=== PATIENT | female | born 1985 | race African-American/Black ===

== ENCOUNTER 2016-12-25 02:05 | Emergency (ER) | payer MEDICAID ==
[2016-12-25 02:25] LABS: APPEARANCE CLEAR (CLEAR); COLOR YELLOW (YELLOW)
[2016-12-25 02:26] LABS: BILIRUBIN NEGATIVE (NEGATIVE); GLUCOSE NEGATIVE (NEGATIVE); KETONE NEGATIVE (NEGATIVE); NITRITE NEGATIVE (NEGATIVE); PROTEIN NEGATIVE (NEGATIVE); SPECIFIC GRAVITY 1.015 (1.005-1.020); UROBILINOGEN NORMAL (NORMAL)
[2016-12-25 02:30] LABS: HCG URINE NEGATIVE (NEGATIVE)
[2016-12-25 02:37] LABS: BASOPHILS 0.3 % (0-2); EOSINOPHILS 1.6 % (0-7); HEMATOCRIT 38.9 % (36.0-48.0); HEMOGLOBIN 13.3 g/dL (12-16); IMMATURE GRANULOCYTES 0.1 % (0-5); LYMPHOCYTES 32.8 % (15-50); MCH 31.1 pg (26.0-34.0); MCHC 34.2 g/dL (31.0-37.0); MCV 91.1 fL (80.0-100.0); MONOCYTES 13.6 % (2-11); NEUTROPHILS 51.6 % (40-80); PLATELET COUNT 309 10x3/uL (130-400); RBC 4.27 10x6/uL (4.00-5.40); RDW 12.3 % (11.5-14.5); WBC 7.1 10x3/uL (4.8-10.8)
[2016-12-25 02:50] LABS: AMYLASE - SERUM 77 U/L (25-115); LIPASE 97 U/L (73-393)
[2016-12-25 03:11] LABS: ALBUMIN 3.9 g/dL (3.4-5.0); ALKALINE PHOSPHATASE 56 U/L (46-116); ALT (SGPT) 17 U/L (10-68); BILIRUBIN - TOTAL 0.56 mg/dL (0.2-1.3); CALC OSMOLALITY 274 mosm/kg (275-300); CALCIUM 10.4 mg/dL (8.5-10.1); CARBON DIOXIDE 27.5 mmol/L (21.0-32.0); CHLORIDE - SERUM 101 mmol/L (98-107); CREATININE - SERUM 0.9 mg/dL (0.6-1.3); GLUCOSE 102 mg/dL (74-106); POTASSIUM - SERUM 4.3 mmol/L (3.5-5.1); PROTEIN - SERUM 8.4 g/dL (6.4-8.2); SODIUM 138 mmol/L (136-145); UREA NITROGEN 10 mg/dL (7-18); eGFR NON AFRICAN AMERICAN 78 mL/min (90-120)
== END 2016-12-25 04:04 | disposition home or self-care (01) ==
LOC: D.ER 02:05
PROVIDERS: Emergency Medicine
DX: K27.9 Peptic ulcer, site unspecified, unspecified as acute or chronic, without hemorrhage or perforation (principal)

== ENCOUNTER 2017-02-25 19:58 | Emergency (ER) | payer MEDICAID ==
[2017-02-25 20:44] LABS: APPEARANCE SLT CLOUDY (CLEAR); BILIRUBIN NEGATIVE (NEGATIVE); COLOR YELLOW (YELLOW); GLUCOSE NEGATIVE (NEGATIVE); KETONE SMALL mg/dL (NEGATIVE); NITRITE NEGATIVE (NEGATIVE); PROTEIN NEGATIVE (NEGATIVE); UROBILINOGEN NORMAL (NORMAL)
[2017-02-25 20:45] LABS: BASOPHILS 0 % (0-2); EOSINOPHILS 1.1 % (0-7); HEMATOCRIT 40.5 % (36.0-48.0); HEMOGLOBIN 13.7 g/dL (12-16); IMMATURE GRANULOCYTES 0.2 % (0-5); LYMPHOCYTES 22.2 % (15-50); MCH 31.1 pg (26.0-34.0); MCHC 33.8 g/dL (31.0-37.0); MEAN PLATELET VOLUME 9.7 fL (7.4-10.4); MONOCYTES 9.1 % (2-11); NEUTROPHILS 67.4 % (40-80); PLATELET COUNT 330 10x3/uL (130-400); RDW 12.6 % (11.5-14.5); WBC 5.4 10x3/uL (4.8-10.8)
[2017-02-25 20:47] LABS: BACTERIA FEW /hpf (NONE SEEN); RED CELLS - URINE 0-5 /hpf (0-5); WHITE CELLS - URINE 0-5 /hpf (0-5)
[2017-02-25 20:50] LABS: HCG URINE NEGATIVE (NEGATIVE)
[2017-02-25 20:57] LABS: ALBUMIN 4.1 g/dL (3.4-5.0); ALKALINE PHOSPHATASE 63 U/L (46-116); ALT (SGPT) 23 U/L (10-68); AMYLASE - SERUM 81 U/L (25-115); BILIRUBIN - TOTAL 0.72 mg/dL (0.2-1.3); CALC OSMOLALITY 273 mosm/kg (275-300); CALCIUM 9.8 mg/dL (8.5-10.1); CHLORIDE - SERUM 99 mmol/L (98-107); CREATININE - SERUM 0.8 mg/dL (0.6-1.3); GLUCOSE 99 mg/dL (74-106); PROTEIN - SERUM 8.4 g/dL (6.4-8.2); SODIUM 137 mmol/L (136-145); UREA NITROGEN 12 mg/dL (7-18); eGFR NON AFRICAN AMERICAN 90 mL/min (90-120)
== END 2017-02-25 23:09 | disposition home or self-care (01) ==
LOC: D.ER 19:58
PROVIDERS: Family Medicine
DX: B34.9 Viral infection, unspecified (principal)

== ENCOUNTER → 2018-06-02 17:02 | Outpatient (CLI) | payer MEDICAID ==
[2018-06-02 18:01] LABS: T4 THYROXIN - FREE 1.03 ng/dL (0.76-1.46); THYROID STIMULATING HORMONE 0.55 uIU/mL (0.36-3.74)
== END | disposition home or self-care (01) ==
LOC: D.LABREF 17:02
PROVIDERS: ATTEND Internal Medicine Cardiovascular Disease
DX: I47.1 Supraventricular tachycardia (principal)

== ENCOUNTER → 2018-06-09 14:25 | Outpatient (CLI) | payer MEDICAID ==
[~2018-06-09 14:25] MED LIST: AUGMENTIN 875-11 TAB PO; DILANTIN100 MG PO; LANOXIN125 MCG PO; NAPROSYN500 MG PO; OMEPRAZOLE20 M1 PO; PAMELOR 25 MG C25 MG PO
== END | disposition home or self-care (01) ==
LOC: D.HCCARDIO 14:25
DX: I47.1 Supraventricular tachycardia (principal)

== ENCOUNTER 2018-07-31 00:17 | Observation (INO) | payer MEDICAID ==
[~2018-07-31] VITALS: Ht 167.6 cm; Wt 117.7 kg
[2018-07-31] MEDS ORDERED: DILANTIN100 MG PO (00:21)
[2018-07-31] MEDS ORDERED: OMEPRAZOLE20 M1 PO (00:21)
[2018-07-31] MEDS ORDERED: PAMELOR 25 MG C25 MG PO (00:22)
--- NOTE | 2018-07-31 00:35 | NUR ---
PT MOVED FROM ROOM ED 10 TO TRAUMA ROOM 3 FOR HR 220 AND LOW B/P
[2018-07-31 00:42] VITALS: BP 117/78
--- NOTE | 2018-07-31 00:45 | NUR ---
PT ADVISED THAT SHE WAS FEELING BETTER AND HER CHEST PAIN HAVE IMPROVED.
[2018-07-31 00:47] LABS: BASOPHILS 0.3 % (0-2); EOSINOPHILS 1.4 % (0-7); HEMATOCRIT 36.1 % (36.0-48.0); HEMOGLOBIN 12.1 g/dL (12-16); IMMATURE GRANULOCYTES 0.2 % (0-5); LYMPHOCYTES 32.4 % (15-50); MCH 29.5 pg (26.0-34.0); MCHC 33.5 g/dL (31.0-37.0); MEAN PLATELET VOLUME 9.8 fL (7.4-10.4); MONOCYTES 6.9 % (2-11); NEUTROPHILS 58.8 % (40-80); PLATELET COUNT 352 10x3/uL (130-400); WBC 6.4 10x3/uL (4.8-10.8)
[2018-07-31 00:49] LABS: INR 1.06 (0.85-1.17); PROTIME 13.3 SECONDS (11.6-15.0)
[2018-07-31 00:55] VITALS: BP 122/85
[2018-07-31 00:57] LABS: ALBUMIN 3.5 g/dL (3.4-5.0); ALKALINE PHOSPHATASE 67 U/L (46-116); ALT (SGPT) 22 U/L (10-68); CALC OSMOLALITY 277 mosm/kg (275-300); CALCIUM 8.4 mg/dL (8.5-10.1); CHLORIDE - SERUM 103 mmol/L (98-107); CREATININE - SERUM 1.1 mg/dL (0.6-1.3); GLUCOSE 105 mg/dL (74-106); POTASSIUM - SERUM 3.5 mmol/L (3.5-5.1); PROTEIN - SERUM 7.9 g/dL (6.4-8.2); SODIUM 139 mmol/L (136-145); UREA NITROGEN 12 mg/dL (7-18); eGFR NON AFRICAN AMERICAN 62 mL/min (90-120)
[2018-07-31 01:02] VITALS: BP 122/84
[2018-07-31 01:16] LABS: APTT < 20.0 SECONDS (22.8-39.4)
[2018-07-31 01:16] LABS: HCG URINE NEGATIVE (NEGATIVE); UDS - AMPHET NEGATIVE QUAL (NEGATIVE); UDS - BARB NEGATIVE QUAL (NEGATIVE); UDS - BENZO NEGATIVE QUAL (NEGATIVE); UDS - COCAINE NEGATIVE QUAL (NEGATIVE); UDS - OPIATE NEGATIVE QUAL (NEGATIVE); UDS - PCP NEGATIVE QUAL (NEGATIVE); UDS - THC NEGATIVE QUAL (NEGATIVE)
[2018-07-31 01:19] LABS: APPEARANCE CLEAR (CLEAR); BILIRUBIN NEGATIVE (NEGATIVE); COLOR YELLOW (YELLOW); GLUCOSE NEGATIVE (NEGATIVE); KETONE NEGATIVE (NEGATIVE); NITRITE NEGATIVE (NEGATIVE); PROTEIN NEGATIVE (NEGATIVE); UROBILINOGEN NORMAL (NORMAL)
[2018-07-31 01:20] LABS: BACTERIA FEW /hpf (NONE SEEN); EPITHELIAL CELLS 0-5 /hpf (0-5); RED CELLS - URINE 0-5 /hpf (0-5); WHITE CELLS - URINE 0-5 /hpf (0-5)
[2018-07-31 01:21] LABS: CKMB 0.8 U/L (0.0-3.6); CREATINE KINASE 356 UL (21-215); MAGNESIUM - SERUM 1.9 mg/dL (1.8-2.4); PRO BNP 39 pg/mL (0-125); THYROID STIMULATING HORMONE 0.85 uIU/mL (0.36-3.74); TROPONIN-I < 0.017 ng/mL (0.000-0.060)
[2018-07-31 01:22] LABS: PHENYTOIN (DILANTIN) < 0.5 ug/mL (10.0-20.0)
[2018-07-31 01:59] VITALS: BP 119/83; BMI 41.9
[2018-07-31 04:00] VITALS: BP 102/66
--- NOTE | 2018-07-31 07:28 | NUR ---
ROUNDING DONE WITH PATIENT BEING NPO AT THIS TIME UNTIL SEEN PER MD. ON HEART MONITOR SHOWING SR, HR 92. ON ROOM AIR. SALINE LOCK PIV SEEN TO LEFT AC, ORANGE SWAB CAP PLACED. DENIES NEEDS AT THIS TIME.
[2018-07-31 09:04] VITALS: BP 114/70
[2018-07-31 10:24] VITALS: Ht 167.6 cm; Wt 117.7 kg
--- NOTE | 2018-07-31 10:41 | NUR ---
STARTED ON EP, K+ IS 3.5. WILL COVER WITH ORAL SUPPLEMENTS.
[2018-07-31] MEDS ORDERED: LANOXIN125 MCG PO (10:46)
--- NOTE | 2018-07-31 13:44 | NUR ---
PATIENT IS READY FOR DISCHARGE, WILL REMOVE SALINE LOCK AND GIVE VERBAL INSTRUCTIONS WITH PAPERWORK.
--- NOTE | 2018-07-31 14:02 | NUR ---
SALINE LOCK REMOVED WITH CATH TIP INTACT. HEART MONITOR TURNED IN. VERBAL AND WRITTEN DISCHARGE INSTRUCTIONS GIVEN TO PATIENT. I ALSO TAUGHT/INSTRUCTED PATIENT ON HOW TO CHECK HER HEART RATE FOR LANOIX[place]. SHE WAS ABLE TO DEMOSTRATE THIS BACK TO ME.
--- NOTE | 2018-07-31 14:23 | NUR ---
DISCHARGED HOME VIA WHEELCHAIR.
--- NOTE | 2018-08-01 07:53 | MORECARE ---
CASE MANAGEMENT DISCHARGE SUMMARY PATIENT: MASSIMO NICOLE UNIT: [id number] ADM DATE: 07/31/18 AGE: 32 : 89 SEX: F ROOM/BED: D.6485 AUTHOR: ALFONZO OLSEN PHYSICIAN: REFERRING PHYSICIAN: DRAKE FLANNERY DO DATE OF SERVICE: 08/01/18 Discharge Plan Patient Name: MASSIMO NICOLE Facility: [facility]:[place] : 1985 Planned Disposition: Home Anticipated Discharge Date: 07/31/18 Discharge Date: 07/31/2018 Expected LOS: 1 Initial Reviewer: [email or web address] Initial Review Date: 08/01/2018 Generated: 08/01/18 8:52 am Patient Name: MASSIMO NICOLE Page [id number] at 0753 All edits/amendments must be made on the electronic document DICTATION DATE: 08/01/18 075 RECRUITER: JESS 08/01/18 075 RPT#: [id number] DC DATE:07/31/18 STATUS: DIS IN [facility] [address] [place] [address] END OF REPORT
--- NOTE | 2018-08-01 07:59 | MORECARE ---
CASE MANAGEMENT DISCHARGE SUMMARY PATIENT: MASSIMO NICOLE UNIT: [id number] ADM DATE: 07/31/18 AGE: 32 : 89 SEX: F ROOM/BED: D.8705 AUTHOR: ALFONZO OLSEN PHYSICIAN: REFERRING PHYSICIAN: DRAKE FLANNERY DO DATE OF SERVICE: 08/01/18 Discharge Plan Patient Name: MASSIMO NICOLE Facility: [facility]:[place] : 1985 Planned Disposition: Home Anticipated Discharge Date: 07/31/18 Discharge Date: 07/31/2018 Expected LOS: 1 Initial Reviewer: [email or web address] Initial Review Date: 08/01/2018 Generated: 08/01/18 8:59 am Patient Name: MASSIMO NICOLE Page 16494 at 0759 All edits/amendments must be made on the electronic document DICTATION DATE: 08/01/18 0759 MOTORCYCLE MECHANIC: JESS 08/01/18 0759 RPT#: [id number] DC DATE:07/31/18 STATUS: DIS IN [facility] [address] [place] [address] END OF REPORT
--- NOTE | 2018-08-02 11:19 | CN ---
PATIENT NAME:MASSIMO MARCIAL MEDICAL RECORD: [id number] : 89 LOCATION:. D.2115 ADMIT DATE: 07/31/18 ACCOUNT: [id number] CONSULTING PHYSICIAN: CORRIE JEFFERS MD REFERRING PHYSICIAN: DRAKE FLANNERY DO DATE OF CONSULTATION: 07/31/2018 DIAGNOSIS: Supraventricular tachycardia. HISTORY OF PRESENT ILLNESS: Ms. Marcial presents with palpitations, was found to have a supraventricular tachycardia, heart rates in the 220 range, it broke with adenosine, has not had any recurrences of it. She has felt palpitations 3 times over the past 3 months. This is a new problem for her. Her TSH was normal. She has no cardiac history. Her EKG shows no signs of preexcitation. PHYSICAL EXAMINATION: GENERAL APPEARANCE: Well-nourished, well-developed, appears stated age. Level of distress, comfortable. PSYCHIATRIC: Mental status, alert, normal affect. Orientation, oriented to time, place and person. EYES: Lids and conjunctiva, noninjected. No discharge, no pallor. ENT: Lips, teeth, gums, normal dentition. Oropharynx, no cyanosis, no pallor. NECK: Carotid arteries, bilateral normal upstroke, no bruits, no thrills. JUGULAR VEINS: No jugular venous pressure or distention. CERVICAL LYMPH NODES: Nontender, nonenlarged. THYROID: Not enlarged. Nontender. No nodules. LUNGS: Respiratory effort, unlabored. CHEST: Normal curvature. No thoracic deformity. No chest wall tenderness. Percussion, resonant. Auscultation, clear. No wheezes, no rales, no rhonchi. CARDIOVASCULAR: Precordial exam, nondisplaced. No heaves or pericardial thrills. Rate and rhythm, regular. Heart sounds, normal S1, normal S2. No S3, no gallop, no rub. Systolic murmur, not heard. Diastolic murmur, not heard. EXTREMITIES: No cyanosis, no edema. Peripheral pulses, full and equal in all extremities, except as noted. No bruits appreciated. ABDOMEN: Soft, nondistended. Normal aorta. No bruit. Nontender. No masses. Liver, nontender, no hepatomegaly. Spleen, nontender, no splenomegaly. MUSCULOSKELETAL: No joint tenderness. No joint swelling. No erythema. NEUROLOGICAL: Normal gait, normal strength, normal tone. SKIN: Warm and dry. OVERALL IMPRESSION: Supraventricular tachycardia, most likely AV lianne reentrant tachycardia. At this time, we will start her on digoxin 0.25 mg every day as her systolic blood pressure is in the 90s at baseline, precluding use of calcium channel blockers or beta-blockers. She can be discharged home. We will set a followup as an outpatient. We will get an echocardiogram prior to discharge as well. TRANSINT:[id number] Voice Confirmation ID: [id number] DOCUMENT ID: [id number] CONSULT REPORT [id number] MASSIMO MARCIAL JEFFREY MD at 1119 CC: [id number] DICTATION DATE: 07/31/18946 ENTRY LEVEL ADMINISTRATIVE ASSISTANT: 07/31/18 0954 DIS IN 07/31/18 [facility] [address] [place] [address]
--- NOTE | 2018-08-02 11:19 | EC ---
PATIENT:MASSIMO NICOLE DATE OF SERVICE: 07/31/18 SEX: F MEDICAL RECORD: [id number] DATE OF : [birth year] LOCATION:D.M2 D.211 AGE OF PATIENT: 32 ADMISSION DATE: 07/31/18 REFERRING PHYSICIAN: INTERPRETING PHYSICIAN: CORRIE FELDER MD ECHOCARDIOGRAM REPORT ECHO CHARGES 5 ECHO LIMITED Date: 07/31/18 CLINICAL DIAGNOSIS: SVT ECHOCARDIOGRAPHIC MEASUREMENTS (adult normal given) AC root (d.<3.7cm) 2.6 cm LV Septum d (<1.2 cm> cm Valve Excursion 1.9 cm LV Septum (systole) cm Left Atria (s.<4.0cm> 2.3 cm LVPW d(<1.2cm) cm RV (d.<2.3cm) cm LVPW (sytole) cm LV diastole(<5.6CM) cm MV E-F(>70mm/sec) cm LV systole cm LVOT Diameter cm MV exc.(>10mm) cm Est.ejection fraction (50-75%) % DOPPLER: LVIT cm/sec A cm/sec E cm/sec LA cm/sec RVSP 25.2 mmHg LVOT cm/sec AOP1/2T m/s Asc. Ao cm/sec RVOT cm/sec RA cm/sec PA cm/sec AV Gradient Peak mmHg AV Mean mmHg AV Area cm MV Gradient Peak mmHg MV Mean mmHg MV Area cm COMMENTS: [employer] Work Supervisor: Zay GUTIERREZ Plant General Manager: Karissa Felder TAPE# PACS Pericardial Effusion N DATE OF SERVICE: 07/31/2018 PROCEDURE: Echocardiogram. FINDINGS: 1. Left ventricular chamber size is within normal limits. Left ventricular systolic function is normal. Overall ejection fraction estimated at 65%. 2. Left atrium, right atrium, right ventricle sizes are within normal limits. 3. Valvular structures have normal structure and motion. 4. Doppler interrogation reveals [id number] mitral regurgitation, mild ECHOCARDIOGRAM REPORT [id number] MASSIMO NICOLE tricuspid regurgitation, no other valvular insufficiency or stenosis. Pulmonary systolic pressure is estimated at 25 mmHg. 5. No evidence of pericardial effusion or left ventricular thrombus. TRANSINT:[id number] Voice Confirmation ID: [id number] DOCUMENT ID: [id number] CORRIE FELDER MD at 1116 CC: [id number] DICTATION DATE: 07/31/18 1200 SUPERVISOR PROPELLANT CHARGE LOADING: 07/31/18 1208 DIS IN 07/31/18 [facility] [address] [place] [id number]
== END 2018-07-31 14:34 | disposition home or self-care (01) ==
LOC: D.ER 00:17 → D.M2 00:46 → OBSVTIME 00:46 → D.M2 00:46
PROVIDERS: Family Medicine; ADMIT Family Medicine; ATTEND Family Medicine
DX: I47.1 Supraventricular tachycardia (principal); G40.909 Epilepsy, unspecified, not intractable, without status epilepticus; K21.9 Gastro-esophageal reflux disease without esophagitis

== ENCOUNTER 2018-10-31 19:20 | Emergency (ER) | payer MEDICAID ==
[~2018-10-31] VITALS: Ht 167.6 cm; Wt 115.9 kg
[~2018-10-31 19:20] MED LIST changes: -AUGMENTIN 875-11 TAB PO; -NAPROSYN500 MG PO
[2018-10-31 19:43] VITALS: Ht 167.6 cm; Wt 115.9 kg
[2018-10-31 20:17] LABS: BASOPHILS 0.3 % (0-2); EOSINOPHILS 1.5 % (0-7); HEMATOCRIT 36.3 % (36.0-48.0); HEMOGLOBIN 12.4 g/dL (12-16); IMMATURE GRANULOCYTES 0.1 % (0-5); LYMPHOCYTES 35.4 % (15-50); MCH 29.7 pg (26.0-34.0); MCHC 34.2 g/dL (31.0-37.0); MCV 87.1 fL (80.0-100.0); MEAN PLATELET VOLUME 9.5 fL (7.4-10.4); NEUTROPHILS 51.7 % (40-80); PLATELET COUNT 307 10x3/uL (130-400); RBC 4.17 10x6/uL (4.00-5.40); RDW 13.7 % (11.5-14.5); WBC 7.2 10x3/uL (4.8-10.8)
[2018-10-31 20:25] LABS: APTT 25.8 SECONDS (22.8-39.4); INR 1.1 (0.85-1.17); PROTIME 13.7 SECONDS (11.6-15.0)
[2018-10-31 20:31] LABS: ALBUMIN 3.8 g/dL (3.4-5.0); ALKALINE PHOSPHATASE 76 U/L (46-116); ALT (SGPT) 17 U/L (10-68); BILIRUBIN - TOTAL 0.21 mg/dL (0.2-1.3); CALC OSMOLALITY 280 mosm/kg (275-300); CALCIUM 9.2 mg/dL (8.5-10.1); CARBON DIOXIDE 24.4 mmol/L (21.0-32.0); CHLORIDE - SERUM 106 mmol/L (98-107); GLUCOSE 87 mg/dL (74-106); POTASSIUM - SERUM 4.1 mmol/L (3.5-5.1); PROTEIN - SERUM 7.8 g/dL (6.4-8.2); SODIUM 142 mmol/L (136-145); UREA NITROGEN 10 mg/dL (7-18); eGFR NON AFRICAN AMERICAN 69 mL/min (90-120)
[2018-10-31 20:42] LABS: CKMB 0.5 U/L (0.0-3.6); CREATINE KINASE 150 UL (21-215)
[2018-10-31 20:43] LABS: TROPONIN-I < 0.017 ng/mL (0.000-0.060)
[2018-10-31] MEDS ORDERED: NAPROSYN500 MG PO (20:56)
[2018-10-31] MEDS ORDERED: AUGMENTIN 875-11 TAB PO (20:56)
[2018-10-31 20:58] VITALS: BP 124/90
== END 2018-10-31 21:15 | disposition home or self-care (01) ==
LOC: D.ER 19:20
PROVIDERS: Family Medicine
DX: M94.0 Chondrocostal junction syndrome [Tietze] (principal); J20.9 Acute bronchitis, unspecified; K21.9 Gastro-esophageal reflux disease without esophagitis